=== PATIENT | female | born 1960 | race Two or more races ===

== ENCOUNTER 2021-07-06 06:14 | Day surgery (SDC) | payer MEDICAID ==
[~2021-07-06] VITALS: Ht 167.6 cm; Wt 103.4 kg
[~2021-07-06 06:14] MED LIST: ALBUAER3 IN; AMLO-496 PO; BECL80AE11 IN; HYDR-3682 PO; LISI-283 PO; METO-289 PO; SERT25TA14 PO; TIOT1AER IN
[2021-07-06] MEDS ORDERED: ceFAZolin 1GM/50ML 100 ML IV ONE (06:41)
[2021-07-06] MEDS ORDERED: MIDAZOLAM HCL 2MG/2ML 2ml VIAL (1mg/ml) ONE (07:25)
[2021-07-06] MEDS ORDERED: ceFAZolin 1GM VL ONE (07:25)
[2021-07-06] MEDS ORDERED: ROCURONIUM 10MG/ML 10ML VIAL IV ONE (07:25)
[2021-07-06] MEDS ORDERED: CONJ ESTROGENS 0.625MG/GM VAG CRM 30GM PV ONE (07:25)
[2021-07-06] MEDS ORDERED: fentaNYL CITRATE 100 MCG/2 ML VL ONE (07:25)
[2021-07-06] MEDS ORDERED: LIDOCAINE W/ EPINEPHRINE 1% 20ML VIAL ONE (07:25)
[2021-07-06] MEDS ORDERED: ONDANSETRON HCL 4 MG/2 ML VIAL ONE (07:29)
[2021-07-06] MEDS ORDERED: PROPOFOL 10 MG/ML 20 ML IV ONE (07:29)
[2021-07-06] MEDS ORDERED: LIDOCAINE 2% (LOCAL ANESTH.) PF 5ml SDV ONE (07:29)
[2021-07-06] MEDS ORDERED: HYDROmorphone HCL 2 MG/ML VL ONE (08:21)
[2021-07-06] MEDS ORDERED: HYDROmorphone HCL 2 MG/ML VL IV PRN (09:15)
[2021-07-06] MEDS ORDERED: ONDANSETRON HCL 4 MG/2 ML VIAL IV PRN (09:15)
[2021-07-06] MEDS ORDERED: GLYCOPYRROLATE 0.2 MG/ML 1ML VIAL ONE (09:35)
[2021-07-06] MEDS ORDERED: NALOXONE HCL 0.4 MG/ML VIAL ONE (10:43)
[2021-07-06] MEDS ORDERED: NALOXONE HCL 0.4 MG/ML VIAL IV ONE (11:00)
[2021-07-06 11:45] VITALS: BP 115/66
== END 2021-07-06 12:05 | disposition home or self-care (01) ==
LOC: SUR 06:14
PROVIDERS: ATTEND Urology
DX: N39.3 Stress incontinence (female) (male) (principal); I10 Essential (primary) hypertension; J44.9 Chronic obstructive pulmonary disease, unspecified; F43.10 Post-traumatic stress disorder, unspecified; Z98.890 Other specified postprocedural states; Z79.899 Other long term (current) drug therapy; Z20.822 Contact with and (suspected) exposure to COVID-19
CPT/HCPCS: 57288; J0690; J1170; J2001; J2250; J2310; J2405; J2704; J3010; U0003